=== PATIENT | male | born 1985 | race Two or more races ===

== ENCOUNTER 2017-11-02 21:18 | Emergency (ER) | payer OTHER ==
[~2017-11-02] VITALS: Ht 188 cm; Wt 83.9 kg
[2017-11-03 01:05] VITALS: BP 127/78
[2017-11-03] MEDS ORDERED: HYDROcodone-ACET 7.5/325MG TAB PO ONE (02:00)
== END 2017-11-03 03:08 | disposition home or self-care (01) ==
LOC: EDBD 21:18 → EDSEX 21:18 → ER 21:27
DX: S13.9XXA Sprain of joints and ligaments of unspecified parts of neck, initial encounter (principal); S20.219A Contusion of unspecified front wall of thorax, initial encounter; S00.83XA Contusion of other part of head, initial encounter; F17.210 Nicotine dependence, cigarettes, uncomplicated; V29.40XA Motorcycle driver injured in collision with unspecified motor vehicles in traffic accident, initial encounter; Y93.89 Activity, other specified; Y92.488 Other paved roadways as the place of occurrence of the external cause; Y99.8 Other external cause status
CPT/HCPCS: 70450; 71046; 72125